=== PATIENT | male | born 1960 | race Caucasian/White ===

== ENCOUNTER 2018-05-17 04:39 | Outpatient (CLI) | payer SELFPAY | END 2018-05-17 23:59 | disposition home or self-care (01) | LOC: DIABETIC 04:39 | PROVIDERS: ATTEND Family Medicine | DX: E11.65 Type 2 diabetes mellitus with hyperglycemia (principal); Z79.899 Other long term (current) drug therapy | CPT/HCPCS: G0108 ==

== ENCOUNTER 2022-11-27 07:19 | Inpatient (IN) | payer BC ==
[2022-11-23 16:24] LABS: BASOPHILS # (AUTO) 0.1 X10'3 (0-0.2); BASOPHILS % (AUTO) 0.9 % (0-1); EOSINOPHILS # (AUTO) 0.6 X10'3 (0-0.9); EOSINOPHILS % (AUTO) 5.7 % (0-6); LYMPHOCYTES # (AUTO) 2.3 X10'3 (1.1-4.8); LYMPHOCYTES % (AUTO) 21.9 % (21-51); MEAN CORPUSCULAR HEMOGLOBIN 31.1 PG (27.0-31.0); MEAN CORPUSCULAR HGB CONC 33.8 g/dL (33.0-36.5); MEAN CORPUSCULAR VOLUME 91.9 FL (78-98); MEAN PLATELET VOLUME 8.4 FL (7.4-10.4); MONOCYTES # (AUTO) 0.8 X10'3 (0-0.9); MONOCYTES % (AUTO) 7.7 % (2-12); NEUTROPHILS # (AUTO) 6.7 X10'3 (1.8-7.7); NEUTROPHILS % (AUTO) 63.8 % (42-75); PRE OP HEMATOCRIT 47.2 % (42.0-52.0); PRE OP PLATELET COUNT 251 X10'3 (140-440); RED BLOOD COUNT 5.13 X10'6 (4.70-6.10); RED CELL DISTRIBUTION WIDTH 14.3 % (11.5-14.5)
[2022-11-23 16:46] LABS: HEMOGLOBIN A1C 6.8 % (4.5-6.2)
[2022-11-23 16:51] LABS: ALBUMIN 4.3 G/DL (3.4-5.0); ALBUMIN/GLOBULIN RATIO 1.2 (1.1-1.5); ALKALINE PHOSPHATASE 67 IU/L (46-116); BLOOD UREA NITROGEN 21 MG/DL (7-18); BUN/CREATININE RATIO 13.4 (5.4-32.0); CALCIUM 9.5 MG/DL (8.5-10.1); CHLORIDE 97 MMOL/L (99-107); CREATININE 1.57 MG/DL (0.60-1.10); PRE OP ALT 22 U/L (30-65); PRE OP ANION GAP 7 (8-16); PRE OP AST 18 U/L (10-37); PRE OP GLUCOSE 129 MG/DL (70-104); PRE OP POTASSIUM 4.3 MMOL/L (3.4-5.1); PRE OP SODIUM 134 MMOL/L (135-145); TOTAL CARBON DIOXIDE 30.3 MMOL/L (24-32); eGFR 45 ML/MIN
[~2022-11-27] VITALS: Ht 185.4 cm; Wt 154.2 kg
[2022-11-27] VITALS (23 sets, daily range): BP systolic 91–131; BP diastolic 51–78
[2022-11-27] MEDS: potassium cl 20mEq in 1/2 NS 1,000 ML IV SCH ×3 (06:55→22:55)
[~2022-11-27 07:19] MED LIST: ALLO300T8 PO; AMLO10TA13 PO; BISO10TA16 PO; DEXTROSE 15 GM of carb/4 tabs (each vial/BOTTLE has 4 tablets) PO PRN; HYDR25TA4 PO; HYDROcodone/acetaminophen 10/325mg tab PO PRN; HYDROmorphone 1 mg/ml syringe IV PRN; HYDROmorphone inj. 0.5 MG/0.5 ML DISP.SYRIN IV PRN; LISI40TA13 PO; MESSAGE TO PHARMACY PO ONE; OMEP40CA21 PO; PIOG30TA72 PO; PRAV40TA3 PO; acetaminophen 325mg tablet PO ONE; acetaminophen 325mg tablet PO PRN; bisacodyl 10mg suppository rectal RC PRN; ceFAZolin inj. 2,000 MG in dextrose 5%-water 100 ML IV ONE; celeCOXIB 100mg capsule PO ONE; dextrose 50%-water 50ml dispensing syringe IV PRN; diphenhydrAMINE 25mg capsule PO PRN; famotidine 20mg tablet PO ONE; gabapentin 300mg capsule PO ONE; glucagon, human recombinant 1mg kit SUBCUT PRN; insulin Lispro (HumaLOG) vial - multi-dose SQ SCH; magnesium hydroxide 30ml (MOM) UD suspension PO PRN; metoclopramide 5 mg/ml inj IV ONE; naloxone 0.4 mg/ml inj IV PRN; ondansetron/PF 4mg/2ml inj IV PRN; oxyCODONE SR 10mg (sust. release) tab -2 tabs (20mg) PO ONE; tranexamic acid inj. 1,000 MG in normal saline IV soln 100ML IV ONE; vancomycin 1,500 MG in NS 300ml IV soln IV ONE
--- NOTE | 2022-11-27 07:25 | NUR ---
TOTAL JOINT CHARTING: [facility]. MD MOORE NOT PRESCRIBE MUPIROCIN OINTMENT. DID NOT WATCH THE VIDEO, HOWEVER DID READ THE BOOKLET. [facility]'S WNL. LEFT PEDAL PULSE PALPABLE AND MARKED. +1 BILAT ANKLE EDEMA NOTED. Addendum: 11/27/22 at 0958 by Glory Tamez RN Amended: Links added.
[2022-11-27] MEDS ORDERED: ceFAZolin/D5W- 1GM premix 50 ML IV SCH (08:00)
[2022-11-27] MEDS: ringers solution, lacted 1,000 ML IV SCH ×2 (08:13→14:44)
[2022-11-27] MEDS ORDERED: ondansetron/PF 4mg/2ml inj IV PRN (08:30)
[2022-11-27] MEDS ORDERED: morphine 2 MG/ML inj. syringe IV PRN (08:30)
[2022-11-27] MEDS ORDERED: ringers solution, lacted 1,000 ML IV SCH (08:30)
[2022-11-27] MEDS ORDERED: morphine 4 MG/ML inj SYRINge IV PRN (08:30)
[2022-11-27] MEDS ORDERED: enalaprilat dihydrate 2.5mg/2ml vial IV PRN (08:30)
[2022-11-27] MEDS ORDERED: fentaNYL/PF 50MCG/1 ML 2ML syringe IV PRN ×2 (08:30)
[2022-11-27] MEDS ORDERED: labetalol 20mg/4ml (5mg/ml) syringe IV PRN (08:30)
[2022-11-27] MEDS ORDERED: cloNIDine hcl/PF 100mcg/ml inj ONE (10:13)
[2022-11-27] MEDS ORDERED: ROPIVAcaine 0.5% (5mg/ml) 30ml vial ONE ×2 (10:13→11:51)
[2022-11-27] MEDS ORDERED: vancomycin 1,000mg inj ONE (10:13)
[2022-11-27] MEDS ORDERED: epiNEPHrine 1 mg/ml inj ONE (10:13)
[2022-11-27] MEDS ORDERED: ketorolac trometh. 30mg/ml inj. ONE (10:13)
[2022-11-27] MEDS ORDERED: fentaNYL/PF 50MCG/1 ML 2ML syringe ONE (11:03)
[2022-11-27] MEDS ORDERED: MIDAZolam 1mg/ml 10ml vial ONE (11:03)
[2022-11-27] MEDS ORDERED: diphenhydrAMINE 50 mg/ml inj ONE (11:36)
[2022-11-27] MEDS ORDERED: ROPIVAcaine 0.2% (10 MG/5 ML) BOLUS INJECTION ADDCANAL PRN (12:30)
--- NOTE | 2022-11-27 13:27 | NUR ---
Received from OR via BED, accompanied by Anesthesiologist and report given by TE Anesthesiologist. PATIENT WAKING UP, DENIES PAIN, V/S WNL, SCD ON, 20G TO RIGHT WRIST, drsg to LEFT KNEE C/D/I with ICE PACK. ON-Q CATHETER NOTED WITH C/D/I AND WILL START ROPIVACAINE DRIP AT 2 CC/HR. Addendum: 11/27/22 at 1404 by Mazin Feldman RN Amended: Links added.
[2022-11-27] MEDS: ROPIVAcaine 0.2%/PF PUMP/bolus 545 ML ADDCANAL SCH (13:53)
[2022-11-27] MEDS ORDERED: TRANEXAMIC ACID IV ONE (15:30)
[2022-11-27] MEDS ORDERED: NORMAL SALINE IV ONE (15:30)
--- NOTE | 2022-11-27 15:37 | NUR ---
PATIENT HAS MET ALL CRITERIA FOR TRANSFER TO THE SURGICAL FLOOR. VSS. DRESSINGS INTACT. BED LOW, CALL LIGHT PRESENT AND 2 RAILS UP. RN PRESENT TO ACCEPT CARE OF PATIENT AND REPORT HAS BEEN CALLED. ALL QUESTIONS ANSWERED TO ACCEPTING RN. Addendum: 11/27/22 at 1545 by Mazin Feldman RN Amended: Links added.
[2022-11-27] MEDS: HYDROcodone/acetaminophen 10/325mg tab PO PRN ×2 (16:37→22:40)
--- NOTE | 2022-11-27 18:22 | NUR ---
Patient in room ORTHO 4024. I have received report from laurie Tan and had the opportunity to ask questions and assume patient care.
[2022-11-27] MEDS: ceFAZolin inj. 3,000 MG in normal saline 100ml IV soln 100 ML IV SCH ×2 (18:29→23:38)
[2022-11-27] MEDS: ascorbic acid 500mg tablet PO SCH (20:39)
[2022-11-27] MEDS: gabapentin 300mg capsule PO SCH (20:40)
[2022-11-27] MEDS ORDERED: vancomycin inj 1,750 MG in normal saline 500ml IV soln 350 ML IV ONE (20:55)
[2022-11-27] MEDS ORDERED: sennosides 8.6mg tablet PO SCH (21:00)
[2022-11-27] MEDS ORDERED: insulin glargine (Lantus) pen - multi-dose SQ SCH (21:00)
[2022-11-28 02:06] VITALS: BP 141/81
[2022-11-28] MEDS: HYDROcodone/acetaminophen 10/325mg tab PO PRN (05:15)
[2022-11-28] MEDS ORDERED: VANCOMYCIN 750MG IV in NS 250 ML IV ONE (05:55)
[2022-11-28] MEDS ORDERED: vancomycin inj 1,750 MG in normal saline 500ml IV soln 350 ML IV ONE (05:55)
[2022-11-28 06:00] VITALS: BP 146/83
[2022-11-28] MEDS ORDERED: vancomycin/NS 1 GM ADD-VANTAGE 250 ML X 1 DOSE IV ONE (06:00)
--- NOTE | 2022-11-28 06:31 | NUR ---
Problems reprioritized. Patient report given, questions answered & plan of care reviewed with laurie Tan.
[2022-11-28] MEDS: potassium cl 20mEq in 1/2 NS 1,000 ML IV SCH (06:55)
[2022-11-28] MEDS: gabapentin 300mg capsule PO SCH ×2 (07:00→13:37)
[2022-11-28] MEDS: ascorbic acid 500mg tablet PO SCH (07:00)
[2022-11-28 07:13] VITALS: BP 96/64
[2022-11-28] MEDS ORDERED: lisinopril 20mg tablet PO SCH (08:00)
[2022-11-28] MEDS ORDERED: HYDROchlorothiazide 25mg tablet PO SCH (08:00)
[2022-11-28] MEDS ORDERED: Bisoprolol Fumarate 10 MG PO SCH (08:00)
[2022-11-28] MEDS ORDERED: amLODIPine 5mg tablet PO SCH (08:00)
[2022-11-28] MEDS ORDERED: multivitamins, therapeutics tablet PO SCH (08:00)
[2022-11-28] MEDS ORDERED: allopurinol 300 MG tablet PO SCH (08:00)
[2022-11-28] MEDS ORDERED: pantoprazole 40mg Tablet.DR PO SCH (08:00)
[2022-11-28] MEDS ORDERED: pravastatin 40mg tablet PO SCH (08:00)
[2022-11-28 08:49] LABS: BASOPHILS % (AUTO) 0.5 % (0-1); EOSINOPHILS # (AUTO) 0.1 X10'3 (0-0.9); HEMOGLOBIN 12.8 g/dl (14.0-17.9); PLATELET COUNT 180 X10'3 (140-440); RED CELL DISTRIBUTION WIDTH 13.7 % (11.5-14.5)
[2022-11-28] MEDS: ceFAZolin inj. 3,000 MG in normal saline 100ml IV soln 100 ML IV SCH (08:54)
[2022-11-28 08:55] LABS: BASOPHILS # (AUTO) 0.1 X10'3 (0-0.2); EOSINOPHILS % (AUTO) 0.8 % (0-6); LYMPHOCYTES # (AUTO) 1.3 X10'3 (1.1-4.8); LYMPHOCYTES % (AUTO) 12.5 % (21-51); MEAN CORPUSCULAR HEMOGLOBIN 31.1 PG (27.0-31.0); MEAN CORPUSCULAR HGB CONC 33.7 g/dL (33.0-36.5); MEAN CORPUSCULAR VOLUME 92.3 FL (78-98); MEAN PLATELET VOLUME 8.6 FL (7.4-10.4); MONOCYTES # (AUTO) 1.3 X10'3 (0-0.9); MONOCYTES % (AUTO) 11.8 % (2-12); NEUTROPHILS % (AUTO) 74.4 % (42-75); RED BLOOD COUNT 4.12 X10'6 (4.70-6.10); WHITE BLOOD COUNT 10.7 X10'3 (4.5-11.0)
[2022-11-28 09:15] LABS: ANION GAP 8 (8-16); CHLORIDE 99 MMOL/L (99-107); POTASSIUM 4.8 MMOL/L (3.5-5.1); SODIUM 134 MMOL/L (135-145); TOTAL CARBON DIOXIDE 26.9 MMOL/L (24-32)
--- NOTE | 2022-11-28 10:46 | NUR ---
Joint surgery consult: Pt s/p L knee surgery this admit per EMR. Pt seen by MARY at bedside for written/verbal high protein diet ed w/ RD contact information provided. MARY encouraged pt to contact dietitian's office if further questions/concerns. Addendum: 11/28/22 at [address] Amended: Links added.
[2022-11-28 13:00] VITALS: BP 136/66
[2022-11-28] MEDS: ROPIVAcaine 0.2%/PF PUMP/bolus 545 ML ADDCANAL SCH (15:14)
[2022-11-28] MEDS ORDERED: celeCOXIB 100mg capsule PO SCH (20:00)
== END 2022-11-28 15:41 | disposition home or self-care (01) | DRG 470 ==
LOC: PAS 07:19 → ORTHO 4S 07:20
PROVIDERS: ADMIT Orthopaedic Surgery; ATTEND Orthopaedic Surgery
PROC: 3E0T3BZ Introduction of Anesthetic Agent into Peripheral Nerves and Plexi, Percutaneous Approach (ICD-10-PCS; 2022-11-27)
PROC: 3E0T33Z Introduction of Anti-inflammatory into Peripheral Nerves and Plexi, Percutaneous Approach (ICD-10-PCS; 2022-11-27)
PROC: 0SRD0J9 Replacement of Left Knee Joint with Synthetic Substitute, Cemented, Open Approach (ICD-10-PCS; principal; 2022-11-27 10:52)
DX: M17.12 Unilateral primary osteoarthritis, left knee (principal); Z68.41 Body mass index [BMI] 40.0-44.9, adult; E66.9 Obesity, unspecified; I12.9 Hypertensive chronic kidney disease with stage 1 through stage 4 chronic kidney disease, or unspecified chronic kidney disease; E11.22 Type 2 diabetes mellitus with diabetic chronic kidney disease; N18.30 Chronic kidney disease, stage 3 unspecified; Z79.84 Long term (current) use of oral hypoglycemic drugs; Z79.899 Other long term (current) drug therapy
CPT/HCPCS: Z7506; Z7508; 36415; 73560; 80051; 80053; 82948; 83036; 85025; 86885; 86900; 86901; 87081; 93005; 97116; 97161; A4215; A4615; A6449; A7000; C1713; C1776; G0378; J0171; J0690; J0735; J1200; J1815; J1885; J2250; J2765; J2795; J3010; J3370; J3480; J3490; J7040; J7060; J7120